=== PATIENT | male | born 1980 | race Caucasian/White ===

== ENCOUNTER 2023-09-27 15:09 | Emergency (ER) | payer OTHER ==
[~2023-09-27] VITALS: Ht 182.9 cm; Wt 86.7 kg
[~2023-09-27 15:09] MED LIST: ADDERALL 30 MG30 MG; CLINDAMYCIN HC150 MG PO; CYCLOBENZAPRINE10 MG PO; NORCO 5-325 TA1 EACH PO; TADALAFIL5 M1
--- OUTSIDE RECORDS SUMMARY | 2023-09-27 15:12 | XMS ---
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 E.James. VISIT COUNT (12 MO.) [address] Mary Jo Tsang (Gabe Bernal) TOTAL 5 NOTE: Visits indicate total known visits. ED/UCC VISIT TRACKING (12 MO.) 09/27/2023 15:10 [facility] [place] TYPE: Emergency COMPLAINT: - SWALLOWING ISSUES 09/20/2023 09:17 [facility] Gabe ALFARO ([place]) TYPE: Emergency DIAGNOSES: - Chest pain, unspecified - Other nonspecific abnormal finding of lung field - Chest Pain - chest tenderness, raspy voice - Hoarse [facility] DIAGNOSES: - Chest pain, unspecified - Dysphagia, unspecified - Chest Pain - cp - Shortness of Breath 08/12/2023 18:05 [facility] TYPE: Emergency COMPLAINT: - CHEST PAIN DIAGNOSES: - Chest pain, unspecified - Other chest pain 08/06/2023 20:30 [facility] TYPE: Emergency COMPLAINT: - CHEST PAIN DIAGNOSES: - Chest pain, unspecified - Other chest pain - Other fdc (current) drug therapy INPATIENT VISIT TRACKING (12 MO.) No inpatient visits to display in this time frame [email or web address]
[2023-09-27] MEDS ORDERED: METOPROLOL SUCC25 MG PO (15:37)
[2023-09-27] MEDS ORDERED: OXYCODONE-ACET1 EAC1 PO (15:37)
[2023-09-27] MEDS ORDERED: DEXTROAMP-AMPHE20 MG PO (15:38)
[2023-09-27] MEDS ORDERED: OMEPRAZOLE20 M1 PO (15:38)
[2023-09-27] MEDS ORDERED: LIDOCAINE & ANTACID 35 ML BTL PO ONE (16:15)
[2023-09-27] MEDS ORDERED: PREDNISONE20 MG PO (17:11)
[2023-09-27] MEDS ORDERED: predniSONE 20 MG TAB PO ONE (17:15)
[2023-09-27 17:26] VITALS: BP 126/94
== END 2023-09-27 17:27 | disposition home or self-care (01) ==
LOC: ED 15:09
DX: J02.9 Acute pharyngitis, unspecified (principal); Z79.899 Other long term (current) drug therapy
CPT/HCPCS: 87651; 99283; J7512

== ENCOUNTER 2024-08-10 18:14 | Emergency (ER) | payer OTHER ==
[~2024-08-10] VITALS: Ht 182.9 cm; Wt 98.0 kg
[~2024-08-10 18:14] MED LIST changes: +DEXTROAMP-AMPHE20 MG PO; +MELOXICAM15 MG PO; +METHOCARBAMOL750 MG PO; +METOPROLOL SUCC25 MG PO; +OMEPRAZOLE20 M1 PO; +OXYCODONE-ACET1 EAC1 PO; +PREDNISONE20 MG PO
[2024-08-10] MEDS ORDERED: HYDROCODONE BIT/ACETAMINOPHEN 5/325 MG 1 TAB HOME.PACK PO PRN (19:45)
[2024-08-10 19:46] VITALS: BP 148/81
== END 2024-08-10 19:46 | disposition home or self-care (01) ==
LOC: ED 18:14
DX: S40.011A Contusion of right shoulder, initial encounter (principal); Y93.21 Activity, ice skating; Z79.899 Other long term (current) drug therapy; V00.211A Fall from ice-skates, initial encounter
CPT/HCPCS: 73030; 99283; A9270

== ENCOUNTER 2024-08-14 11:29 | Emergency (ER) | payer OTHER ==
[~2024-08-14] VITALS: Ht 182.9 cm; Wt 98.0 kg
--- OUTSIDE RECORDS SUMMARY | 2024-08-14 11:36 | XMS ---
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 E.Clint VISIT COUNT (12 MO.) 4 [facility] 2 [facility] 2 [facility] (aGbe Bernal) 1 [facility] TOTAL 9 NOTE: Visits indicate total known visits. ED/UCC VISIT TRACKING (12 MO.) 08/14/2024 11:29 [facility] TYPE: Emergency COMPLAINT: - RT ARM PAIN 08/10/2024 18:14 [facility] TYPE: Emergency COMPLAINT: - SHOULDER INJURY DIAGNOSES: - Activity, ice skating - Contusion of right shoulder, initial encounter - Fall from ice-skates, initial encounter - Other correction (current) drug therapy - Pain in right shoulder 11/25/2023 17:21 [facility] TYPE: Emergency DIAGNOSES: - Esophagitis, unspecified without bleeding - Chest Pain 11/07/2023 17:48 [facility] TYPE: Emergency DIAGNOSES: - Dorsalgia, unspecified - Dysphagia, unspecified - Other chest pain - Chest Pain 11/03/2023 13:55 [facility] TYPE: Emergency DIAGNOSES: [id number]. chest pain 10/10/2023 10:56 [facility] TYPE: Emergency COMPLAINT: - CHEST PAIN DIAGNOSES: - Other chest pain - Other superintendent container terminal (current) drug therapy 09/27/2023 15:10 [facility] TYPE: Emergency COMPLAINT: - SWALLOWING ISSUES DIAGNOSES: - Acute pharyngitis, unspecified - Other superintendent container terminal (current) drug therapy 09/20/2023 09:17 [facility] Gabe ALFARO ([place]) TYPE: Emergency DIAGNOSES: - Chest pain, unspecified - Other nonspecific abnormal finding of lung field - Chest Pain - chest tenderness, raspy voice - Hoarse 09/08/2023 16:19 [facility] Gabe ALFARO ([place]) TYPE: Emergency DIAGNOSES: - Chest pain, unspecified - Dysphagia, unspecified - Chest Pain - cp - Shortness of Breath INPATIENT VISIT TRACKING (12 MO.) No inpatient visits to display in this time frame [id number]
[2024-08-14 13:25] VITALS: BP 119/76
== END 2024-08-14 13:25 | disposition home or self-care (01) ==
LOC: ED 11:29
DX: M25.511 Pain in right shoulder (principal); X50.1XXA Overexertion from prolonged static or awkward postures, initial encounter; Y93.21 Activity, ice skating; Z79.899 Other long term (current) drug therapy
CPT/HCPCS: 99283